=== PATIENT | male | born 1965 | race Caucasian/White ===

== ENCOUNTER 2018-05-03 07:35 | Emergency (ER) | payer BC, OTHER ==
[~2018-05-03] VITALS: Ht 180.3 cm; Wt 120.2 kg
[2018-05-03] MEDS ORDERED: KETOROLAC 15 MG/ML VIAL. IV ONE (08:00)
[2018-05-03] MEDS ORDERED: IOHEXOL 300 MG/ML 75 ML VIAL. IV ONE (08:30)
[2018-05-03 08:34] LABS: C REACTIVE PROTEIN 43.9 mg/L (0-3.3); CREATININE 1.3 mg/dL (0.7-1.3); POTASSIUM 4.4 mmol/L (3.5-5.1)
[2018-05-03 08:38] LABS: BASO # 0.1 x10^3/uL (0.0-0.2); BASO % 1 % (0-3); EOS # 0.1 x10^3/uL (0.0-0.7); EOS % 1 % (0-3); HEMATOCRIT 46.1 % (39.0-53.0); HEMOGLOBIN 15.9 g/dL (13.0-17.5); LYMPH # 1.7 x10^3/uL (1.0-4.8); LYMPH % 14 % (24-48); MEAN CORPUSCULAR HEMOGLOBIN 31 pg (25-35); MEAN CORPUSCULAR HGB CONC 35 g/dL (31-37); MEAN CORPUSCULAR VOLUME 89 fL (79-100); MONO # 1.1 x10^3/uL (0.0-1.1); MONO % 9 % (0-9); NEUT # 8.9 x10^3uL (1.8-7.7); NEUT % 75 % (31-73); PLATELET COUNT 266 x10^3/uL (140-400); RED BLOOD COUNT 5.21 x10^6/uL (4.30-5.70); RED CELL DISTRIBUTION WIDTH 12.8 % (11.5-14.5); WHITE BLOOD COUNT 11.9 x10^3/uL (4.0-11.0)
[2018-05-03 08:42] LABS: BACTERIA,URINE 0 /HPF (0-FEW); BILIRUBIN,URINE NEG (NEG); CLARITY,URINE CLEAR; COLOR,URINE YELLOW; GLUCOSE,URINE NEG (NEG); HYALINE CASTS, URINE FEW /HPF; NITRITE,URINE NEG (NEG); RBC,URINE 0 /HPF (0-2); SQUAMOUS EPITHELIAL CELL,UR OCC /LPF; UROBILINOGEN,URINE 0.2 mg/dL (0.2 mg/dL); WBC,URINE 0 /HPF (0-4)
--- NOTE | 2018-05-03 09:00 | ED.ADGEN ---
Past History Past Medical History: Diabetes, Hypertension Past Surgical History: Other Alcohol Use: None Drug Use: None Adult General Chief Complaint Chief Complaint Abdominal pain HPI HPI Patient is a 52 old male presents with left lower quadrant pain the past 3 days. Pain is described as sharp rated moderate to severe it is unrelieved with position change and worse with movement. Patient states he is been unable to have a bowel movement despite drinking copious fluids with MiraLAX yesterday. Denies diarrhea. No fever chills, nausea vomiting or sweats. No flank pain, hematuria history kidney stones. No prior abdominal surgeries. Previous colds fluoroscopy 2 years ago with findings of a solitary polyp and diverticula per patient report. No other acute symptoms or complaints[] Review of Systems Review of Systems Review symptoms as per history of present illness. All other review symptoms are negative. I can't remember is normally or sciatic her migraines are All other systems were reviewed and found to be within normal limits, except as documented in this note. Current Medications Current Medications Current Medications Medications (Trade) Dose Ordered Sig/Zainab Start Time Stop Time Status Last Admin Dose Admin Iohexol (Omnipaque 300 Mg/ml) 75 ml 1X ONCE 05/03/18 08:30 05/03/18 08:31 DC 05/03/18 08:52 75 ML Ketorolac Tromethamine (Toradol 15mg Vial) 15 mg 1X ONCE 05/03/18 08:00 05/03/18 08:18 DC 05/03/18 08:08 15 MG Morphine Sulfate (Morphine 4mg Syringe) 4 mg 1X ONCE 05/03/18 09:30 05/03/18 09:31 Ondansetron HCl (Zofran) 4 mg 1X ONCE 05/03/18 09:30 05/03/18 09:31 Allergies Allergies Allergies Coded Allergies Type Severity Reaction Last Updated Verified No Known Drug Allergies 05/03/18 No Physical Exam Physical Exam Constitutional: Well developed, well nourished, no acute distress, non-toxic appearance. [] HENT: Normocephalic, atraumatic, bilateral external ears normal, oropharynx moist, nose normal. [] Eyes: PERRLA, EOMI, conjunctiva normal, no discharge. [] Neck: Normal range of motion, no tenderness. [] Cardiovascular:Heart rate regular rhythm, no murmur [] Lungs & Thorax: Bilateral breath sounds clear to auscultation [] Abdomen: Bowel sounds normal, soft, diffuse left lower quadrant pain, mild tenderness, no rebound rigidity or guarding.. [] Skin: Warm, dry, no erythema. [] Back: No tenderness, no CVA tenderness. [] Extremities: No tenderness, no edema. [] Neurologic: Alert and oriented X 3, normal motor function, normal sensory function, no focal deficits noted. [] Psychologic: Affect normal, judgement normal, mood normal. [] Current Patient Data Vital Signs Vital Signs Date Time Temp Pulse Resp B/P (MAP) Pulse Ox O2 Delivery O2 Flow Rate FiO2 05/03/18 07:40 98.1 99 18 97 Room Air Lab Results Laboratory Tests Test 05/03/18 08:00 05/03/18 08:09 White Blood Count 11.9 x10^3/uL (4.0-11.0) H Red Blood Count 5.21 x10^6/uL (4.30-5.70) Hemoglobin 15.9 g/dL (13.0-17.5) Hematocrit 46.1 % (39.0-53.0) Mean Corpuscular Volume 89 fL (79-100) Mean Corpuscular Hemoglobin 31 pg (25-35) Mean Corpuscular Hemoglobin Concent 35 g/dL (31-37) Red Cell Distribution Width 12.8 % (11.5-14.5) Platelet Count 266 x10^3/uL (140-400) Neutrophils (%) (Auto) 75 % (31-73) H Lymphocytes (%) (Auto) 14 % (24-48) L Monocytes (%) (Auto) 9 % (0-9) Eosinophils (%) (Auto) 1 % (0-3) Basophils (%) (Auto) 1 % (0-3) Neutrophils # (Auto) 8.9 x10^3uL (1.8-7.7) H Lymphocytes # (Auto) 1.7 x10^3/uL (1.0-4.8) Monocytes # (Auto) 1.1 x10^3/uL (0.0-1.1) Eosinophils # (Auto) 0.1 x10^3/uL (0.0-0.7) Basophils # (Auto) 0.1 x10^3/uL (0.0-0.2) Sodium Level 136 mmol/L (136-145) Potassium Level 4.4 mmol/L (3.5-5.1) Chloride Level 99 mmol/L (98-107) Carbon Dioxide Level 24 mmol/L (21-32) Anion Gap 13 (6-14) Blood Urea Nitrogen 14 mg/dL (8-26) Creatinine 1.3 mg/dL (0.7-1.3) Estimated GFR (Cockcroft-Gault) 58.0 Glucose Level 140 mg/dL (70-99) H Calcium Level 9.0 mg/dL (8.5-10.1) C-Reactive Protein 43.9 mg/L (0-3.3) H Urine Collection Type Unknown Urine Color Yellow Urine Clarity Clear Urine pH 5.0 Urine Specific [place] 1.015 Urine Protein Neg (NEG-TRACE) Urine Glucose (UA) Neg mg/dL (NEG) Urine Ketones (Stick) Neg mg/dL (NEG) Urine Blood Trace (NEG) Urine Nitrite Neg (NEG) Urine Bilirubin Neg (NEG) Urine Urobilinogen Dipstick 0.2 mg/dL (0.2 mg/dL) Urine Leukocyte Esterase Neg (NEG) Urine RBC 0 /HPF (0-2) Urine WBC 0 /HPF (0-4) Urine Squamous Epithelial Cells Occ /LPF Urine Bacteria 0 /HPF (0-FEW) Urine Hyaline Casts Few /HPF Urine Mucus Slight /LPF EKG EKG [EKG: NAD] Radiology/Procedures Radiology/Procedures [CT abd/pelvis: Acute diverticulitis without perforation or abscess per radiology report ] Course & Med Decision Making Course & Med Decision Making Pertinent Labs and Imaging studies reviewed. (See chart for details) [Findings of acute diverticulitis on CT scan. Patient does not fever or white blood cell count or evidence of abscess. Hospital admission offered but declined. Patient prefers to treated as an outpatient follow-up with local primary care physician. Discussed with patient's risk including potential complications of diverticulitis. He agrees to return to the ED should his symptoms worsen.] Final Impression Final Impression [1. Acute diverticulitis] Dragon Disclaimer Dragon Disclaimer This electronic medical record was generated, in whole or in part, using a voice recognition dictation system. SHORTY ROSA DO May 03, 2018 09:00
--- NOTE | 2018-05-03 09:07 | RAD ---
CT Abdomen and Pelvis With Intravenous Contrast: History: Left lower quadrant pain for 2 days. Comparison: None. Technique: After administration of intravenous contrast, 75 mL Omnipaque-300, CT of the abdomen and pelvis was performed. Exposure: One or more of the following individualized dose reduction techniques were utilized for this examination: 1. Automated exposure control 2. Adjustment of the mA and/or kV according to patient size 3. Use of iterative reconstruction technique Findings: Evaluation of enteric structures may be limited by lack of oral contrast. Incompletely seen is right gynecomastia. Asymmetric fatty liver disease is seen. Spleen, pancreas, gallbladder, and bilateral adrenal glands are unremarkable. Bilateral kidneys enhance symmetrically. No bowel obstruction identified. Appendix is without evidence of inflammation. Right lower quadrant demonstrates a peripherally calcified lesion in the mesentery, could be peripherally calcified cyst. There is inflammatory change involving the distal descending colon centered at the diverticulum, compatible with acute diverticulitis. No perforation or abscess is identified at this time. There is a mild amount of fluid left paracolic gutter as well as a few small mesenteric lymph nodes, probably reactive. Impression: 1. CT evidence of acute diverticulitis involving the distal descending colon. No perforation or abscess is identified at this time. Electronically signed by: Reuben Ramirez MD (05/03/2018 9:05 AM) [facility]
[2018-05-03] MEDS ORDERED: CIPR500T94 PO (09:27)
[2018-05-03] MEDS ORDERED: METR500T PO (09:27)
[2018-05-03] MEDS ORDERED: HYDR-971 PO (09:27)
[2018-05-03] MEDS ORDERED: MORPHINE SULFATE 4 MG/ML DISP.SYRIN. IV ONE (09:30)
[2018-05-03] MEDS ORDERED: ONDANSETRON PF 4 MG/2 ML VIAL. IV ONE (09:30)
[2018-05-03] MEDS ORDERED: levoFLOXacin 500 MG TABLET PO ONE (09:45)
[2018-05-03] MEDS ORDERED: metroNIDAZOLE 500 MG TABLET PO ONE (09:45)
[2018-05-03 09:55] VITALS: BP 138/72
== END 2018-05-03 10:01 | disposition home or self-care (01) ==
LOC: ER 07:35
DX: K57.32 Diverticulitis of large intestine without perforation or abscess without bleeding (principal); E11.9 Type 2 diabetes mellitus without complications; I10 Essential (primary) hypertension
CPT/HCPCS: 36415; 74177; 80048; 81001; 85025; 86140; 96374; 96375; 99285; J1885; J2270; J2405; Q9967

== ENCOUNTER 2019-04-06 17:00 | Observation (INO) | payer OTHER ==
[~2019-04-06] VITALS: Ht 180.3 cm; Wt 121.6 kg
[~2019-04-06 17:00] MED LIST: CIPR500T94 PO; HYDR-3165 PO; METR500T PO
[2019-04-06] MEDS ORDERED: ASPIRIN 81 MG TAB.CHEW PO ONE (17:15)
[2019-04-06 17:35] LABS: BASO # 0.1 x10^3/uL (0.0-0.2); BASO % 1 % (0-3); EOS # 0.1 x10^3/uL (0.0-0.7); EOS % 1 % (0-3); HEMATOCRIT 45.1 % (39.0-53.0); HEMOGLOBIN 15.5 g/dL (13.0-17.5); LYMPH % 26 % (24-48); MEAN CORPUSCULAR HEMOGLOBIN 31 pg (25-35); MEAN CORPUSCULAR HGB CONC 34 g/dL (31-37); MEAN CORPUSCULAR VOLUME 90 fL (79-100); MONO # 0.6 x10^3/uL (0.0-1.1); MONO % 8 % (0-9); NEUT # 4.9 x10^3uL (1.8-7.7); NEUT % 64 % (31-73); PLATELET COUNT 275 x10^3/uL (140-400); RED BLOOD COUNT 5.01 x10^6/uL (4.30-5.70); RED CELL DISTRIBUTION WIDTH 13.3 % (11.5-14.5); WHITE BLOOD COUNT 7.7 x10^3/uL (4.0-11.0)
[2019-04-06 17:41] LABS: ALBUMIN 3.6 g/dL (3.4-5.0); ALBUMIN/GLOBULIN RATIO 0.9 (1.0-1.7); CREATININE 1.5 mg/dL (0.7-1.3); POTASSIUM 4.1 mmol/L (3.5-5.1); TOTAL BILIRUBIN 0.2 mg/dL (0.2-1.0); TOTAL PROTEIN 7.5 g/dL (6.4-8.2)
--- NOTE | 2019-04-06 17:41 | PHYS DOC ---
Past History Past Medical History: Diabetes, Hypertension Past Surgical History: Other Additional Past Surgical Histo: cardiac cath 2003 Alcohol Use: Occasionally Drug Use: Marijuana Social History Narrative: 3 weeks ago Adult General Chief Complaint Chief Complaint: CHEST PAIN HPI HPI 53-year-old male presents with chest pain. He tells me is been having intermittent pains for the last 1 week. Patient has had long history of chest pain over the last 20 years. There is been no definitive cause found. His last stress test was 2 years ago and is reported to be clear. He has not had a heart catheter in 15 years. Some of his previous pain was related to stress. Patient presents today because the pain is gotten worse throughout the day. It radiates into his left jaw and down his left arm. He feels short of breath. He denies diaphoresis. It does seem to be worse with exertion and better with rest. He denies trauma or falls. Denies fever or chills. Review of Systems Review of Systems Constitutional: Denies fever or chills [] Eyes: Denies change in visual acuity, redness, or eye pain [] HENT: Denies nasal congestion or sore throat [] Respiratory: Denies cough or shortness of breath [] Cardiovascular: No additional information not addressed in HPI [] GI: Denies abdominal pain, nausea, vomiting, bloody stools or diarrhea [] : Denies dysuria or hematuria [] Musculoskeletal: Denies back pain or joint pain [] Integument: Denies rash or skin lesions [] Neurologic: Denies headache, focal weakness or sensory changes [] Endocrine: Denies polyuria or polydipsia [] All other systems were reviewed and found to be within normal limits, except as documented in this note. Current Medications Current Medications Current Medications Medications (Trade) Dose Ordered Sig/Zainab Start Time Stop Time Status Last Admin Dose Admin Aspirin (Children'S Aspirin) 324 mg 1X ONCE 04/06/19 17:15 04/06/19 17:18 DC 04/06/19 17:20 324 MG Iohexol (Omnipaque 350 Mg/ml) 100 ml 1X ONCE 04/06/19 17:45 04/06/19 17:46 UNV Allergies Allergies Allergies Coded Allergies Type Severity Reaction Last Updated Verified No Known Drug Allergies 04/06/19 No Physical Exam Physical Exam Constitutional: Well developed, well nourished, no acute distress, non-toxic appearance. [] HENT: Normocephalic, atraumatic, bilateral external ears normal, oropharynx moist, no oral exudates, nose normal. [] Eyes: PERRLA, EOMI, conjunctiva normal, no discharge. [] Neck: Normal range of motion, no tenderness, supple, no stridor. [] Cardiovascular:Heart rate regular rhythm, no murmur [] Lungs & Thorax: Bilateral breath sounds clear to auscultation [] Abdomen: Bowel sounds normal, soft, no tenderness, no masses, no pulsatile masses. [] Skin: Warm, dry, no erythema, no rash. [] Back: No tenderness, no CVA tenderness. [] Extremities: No tenderness, no cyanosis, no clubbing, ROM intact, no edema. [] Neurologic: Alert and oriented X 3, normal motor function, normal sensory function, no focal deficits noted. [] Psychologic: Affect normal, judgement normal, mood normal. [] Current Patient Data Vital Signs Vital Signs Date Time Temp Pulse Resp B/P (MAP) Pulse Ox O2 Delivery O2 Flow Rate FiO2 04/06/19 17:17 76 20 142/80 (100) 96 Room Air 04/06/19 17:05 98.8 EKG EKG Sinus rhythm, rate 71, leftward axis, no ST elevations or depressions, deep S waves in leads 2, 3, and aVF.[] Radiology/Procedures Radiology/Procedures [] Course & Med Decision Making Course & Med Decision Making Pertinent Labs and Imaging studies reviewed. (See chart for details) Patient's labs are significant for slightly elevated creatinine at 1.5. His baseline is 1.3. He also has an elevated troponin though it is just within normal limits. The patient's heart score is a 5. I believe the patient should be admitted for further trending of observation. I spoke with the hospitalist, Dr. Dhillon and he has accepted the patient for admission. The patient is in agreement with this plan. [] Dragon Disclaimer Dragon Disclaimer This electronic medical record was generated, in whole or in part, using a voice recognition dictation system. The HEART Score for CP Pts HEART Score for Chest Pain: HEART Score for Chest Pain Response (Comments) Value History Highly Suspicious 2 ECG Nonspecific Repolarizatio 1 Age >45 - < 65 1 Risk Factors 1 or 2 Risk Factors 1 Troponin < Normal Limit 0 Total 5 Risk Factors: Risk Factors: DM, Current or recent (<one month) smoker, HTN, HLP, family history of CAD, obesity. Risk Scores: Score 0 - 3: 2.5% MACE over next 6 weeks - Discharge Home Score 4 - 6: 20.3% MACE over next 6 weeks - Admit for Clinical Observation Score 7 - 10: 72.7% MACE over next 6 weeks - Early Invasive Strategies Departure Departure: Impression: Primary Impression: Chest pain Additional Impression: Elevated troponin I level Disposition: 09 ADMITTED INPATIENT Admitting Physician: Stiven Dhillon Condition: STABLE Referrals: OUMOU WHYTE MD (PCP) Problem Qualifiers Primary Impression: Chest pain Chest pain type: precordial pain Qualified Codes: R07.2 - Precordial pain SHORTY FRASER DO Apr 06, 2019 17:41
[2019-04-06] MEDS ORDERED: IOHEXOL 350 MG/ML 100 ML VIAL. IV ONE (17:45)
[2019-04-06] MEDS ORDERED: ONDANSETRON PF 4 MG/2 ML VIAL. IV PRN (18:15)
[2019-04-06] MEDS ORDERED: IV NORMAL SALINE 1,000ML 1,000 ML IV ONE (18:15)
--- NOTE | 2019-04-06 18:56 | RAD ---
Single view chest dated 04/06/2019. Comparison made to 04/06/2019. Clinical data indication: Chest pain. FINDINGS:. Single upright portable exam performed. Heart and mediastinal contours within normal limits. Lungs are hypoinflated but otherwise clear. No consolidation or pleural effusion. No pneumothorax. IMPRESSION: No acute radiographic abnormality. Electronically signed by: Reuben Tolbert MD (04/06/2019 6:53 PM) [facility]
--- NOTE | 2019-04-06 19:05 | RAD ---
CTA chest with contrast dated 04/06/2019. No comparison available. Clinical indication: Chest pain. TECHNIQUE: Contiguous axial imaging the chest performed following the intravenous administration of 75 cc Omnipaque 350. Study was performed as dedicated PE protocol with thin cut coronal MIPS 3-D reconstruction. One or more of the following individualized dose reduction techniques were utilized for this examination: 1. Automated exposure control 2. Adjustment of the mA and/or kV according to patient size 3. Use of iterative reconstruction technique. FINDINGS: Contrast bolus is adequate. No evidence of central, lobar or segmental pulmonary embolus. Subsegmental branches are not well evaluated based on technique. Heart size is upper limits of normal. Tiny pericardial effusion. Coronary artery calcifications. No mediastinal, hilar or axillary lymphadenopathy. There are borderline enlarged subcarinal and right hilar lymph nodes. Thyroid gland is unremarkable. Central airways are patent. Lungs are clear. No consolidation or pleural effusion. No pneumothorax. Limited images of the upper abdomen are unremarkable. No significant bony abnormality. Multilevel spondylosis. IMPRESSION: 1. No evidence of central, lobar or segmental pulmonary embolus. 2. Coronary artery calcifications. 3. Clear lungs. Electronically signed by: Reuben Tolbert MD (04/06/2019 7:02 PM) [facility]
[2019-04-06 20:04] VITALS: BP 157/87
[2019-04-06 22:40] VITALS: BP 120/75
[2019-04-06] MEDS ORDERED: CARV3.1230 PO (23:35)
[2019-04-06] MEDS ORDERED: METF500T16 PO (23:42)
[2019-04-06] MEDS ORDERED: LISI-334 PO (23:43)
[2019-04-07 05:21] VITALS: BP 94/60
[2019-04-07] MEDS ORDERED: HEPARIN for IV BOLUS 10,000 UNIT/10 ML VIAL. IV PRN ×2 (07:30)
[2019-04-07] MEDS ORDERED: HEPARIN 25,000UTS/500ML PREMIX 500 ML IV PRN (07:30)
[2019-04-07] MEDS ORDERED: HEPARIN for IV BOLUS 10,000 UNIT/10 ML VIAL. IV ONE (07:30)
[2019-04-07 07:40] VITALS: BP 118/77
[2019-04-07 08:01] LABS: BASO # 0.1 x10^3/uL (0.0-0.2); BASO % 1 % (0-3); EOS # 0.1 x10^3/uL (0.0-0.7); EOS % 1 % (0-3); HEMATOCRIT 45.7 % (39.0-53.0); HEMOGLOBIN 15.5 g/dL (13.0-17.5); LYMPH # 1.9 x10^3/uL (1.0-4.8); LYMPH % 33 % (24-48); MEAN CORPUSCULAR HEMOGLOBIN 31 pg (25-35); MEAN CORPUSCULAR HGB CONC 34 g/dL (31-37); MEAN CORPUSCULAR VOLUME 91 fL (79-100); MONO # 0.5 x10^3/uL (0.0-1.1); MONO % 8 % (0-9); NEUT # 3.3 x10^3uL (1.8-7.7); NEUT % 57 % (31-73); PLATELET COUNT 244 x10^3/uL (140-400); RED BLOOD COUNT 5.01 x10^6/uL (4.30-5.70); RED CELL DISTRIBUTION WIDTH 13.4 % (11.5-14.5); WHITE BLOOD COUNT 5.9 x10^3/uL (4.0-11.0)
[2019-04-07] MEDS ORDERED: FLU VAX QS 2019-20 (36MOS+)/PF 0.5 ML SYRINGE. VAX IM ONE (09:00)
--- NOTE | 2019-04-09 07:44 | EKG ---
[address] [address] Test Date: 2019-04-06 Test Time: 17:04:25 Pat Name: ERICA ROJAS Department: Room: 115 A Gender: M [employer] Worker: : 1965 Requested By: SARA PHAM Order Number: [id number] Reading MD: Kenney Martinez MD Measurements Intervals [place] Rate: 71 P: 24 WV: 182 QRS: -55 QRSD: 102 T: 21 QT: 350 QTc: 380 Interpretive Statements SINUS RHYTHM LAD IVCD NON-SPECIFIC ST/T CHANGES Electronically Signed On 04-17-2019 10:13:54 CDT by Kenney Martinez MD
== END 2019-04-07 08:00 | disposition short-term general hospital (02) ==
LOC: ER 17:00 → INTOOBSV 18:00 → 1 SOUTH 18:00 → ER 19:32
PROVIDERS: ADMIT Internal Medicine; ATTEND Internal Medicine
DX: R07.89 Other chest pain (principal); E11.9 Type 2 diabetes mellitus without complications; I10 Essential (primary) hypertension; F12.90 Cannabis use, unspecified, uncomplicated; R79.89 Other specified abnormal findings of blood chemistry; I25.10 Atherosclerotic heart disease of native coronary artery without angina pectoris; E78.5 Hyperlipidemia, unspecified; Z98.890 Other specified postprocedural states; Z82.49 Family history of ischemic heart disease and other diseases of the circulatory system
CPT/HCPCS: 36415; 71045; 71275; 80053; 82947; 84484; 85025; 85610; 85730; 93005; 99284; G0378; Q9967; G0379; J7030